=== PATIENT | female | born 1935 | race Hispanic/Latino ===

== ENCOUNTER 2018-01-09 18:54 | Inpatient (IN) | payer MEDICARE ==
[~2018-01-09] VITALS: Ht 144.8 cm; Wt 54.0 kg
[2018-01-09 19:23] LABS: BASOPHILS # (AUTO) 0.1 (0.0-0.1); BASOPHILS % 0.6 % (0.0-1.0); EOSINOPHILS # (AUTO) 0.2 (0.0-0.4); EOSINOPHILS % 1.8 % (0.0-6.0); HEMATOCRIT 25.1 % (34.2-44.1); HEMOGLOBIN 8.3 g/dL (12.0-16.0); LYMPHOCYTES # (AUTO) 1.9 (1.0-3.2); MEAN CORPUSCULAR HEMOGLOBIN 27.9 pg (28-32); MEAN CORPUSCULAR HGB CONC 33.1 g/dL (31-35); MEAN CORPUSCULAR VOLUME 84.5 fL (81-99); MONOCYTES # (AUTO) 1.3 (0.2-0.8); MONOCYTES % 13.6 % (4.4-11.3); NEUTROPHILS % 63.5 % (38.7-80.0); PLATELET COUNT 354 x10e3/uL (140-360); RED BLOOD COUNT 2.97 x10e6/uL (3.6-5.1); RED CELL DISTRIBUTION WIDTH 14.4 % (11.7-14.4)
[2018-01-09 19:37] LABS: ALBUMIN 2.7 g/dL (3.5-5.0); ALBUMIN/GLOBULIN RATIO 0.6 (0.8-2.0); ALKALINE PHOSPHATASE 101 IU/L (40-150); ANION GAP 15.2 mmol/L (8-16); BLOOD UREA NITROGEN 42 mg/dL (7-26); BUN/CREATININE RATIO 18 (6-25); CALCIUM 9.2 mg/dL (8.4-10.2); CARBON DIOXIDE 21 mmol/L (22-29); CHLORIDE 101 mmol/L (98-107); CREATINE KINASE 48 IU/L (29-168); CREATININE, SERUM 2.29 mg/dL (0.57-1.11); EST GLOMERULAR FILTRATION RATE 21 ML/MIN (60-); GLUCOSE 332 mg/dL (74-118); POTASSIUM 5.2 mmol/L (3.5-5.1); SODIUM 132 mmol/L (136-145)
[2018-01-09 19:38] LABS: ALANINE AMINOTRANSFERASE < 6 IU/L (0-55)
[2018-01-09] MEDS: SODIUM CHLORIDE 0.9% 1000ML 1,000 ML IV SCH (19:42)
[2018-01-09 20:03] LABS: BILIRUBIN,URINE NEGATIVE (NEGATIVE); CLARITY,URINE CLOUDY (CLEAR); COLOR,URINE YELLOW (YELLOW); KETONES,URINE NEGATIVE (NEGATIVE); LEUKOCYTE ESTERASE ,URINE 1+ (NEGATIVE); NITRITE,URINE POSITIVE (NEGATIVE); PROTEIN,URINE DIPSTICK 2+ (NEGATIVE); URINE UROBILINOGEN 0.2 mg/dL (0.2 - 1)
[2018-01-09] MEDS ORDERED: GABAPENTIN100 MG PO (20:08)
[2018-01-09] MEDS ORDERED: AMITIZA24 MCG PO (20:08)
[2018-01-09] MEDS ORDERED: SINEMET 25-1001 EACH PO (20:08)
[2018-01-09] MEDS ORDERED: LOSARTAN POTAS100 MG PO (20:08)
[2018-01-09] MEDS ORDERED: NITROFURANTOIN100 MG PO (20:08)
[2018-01-09] MEDS ORDERED: CALCITRIOL0.25 MCG PO (20:08)
[2018-01-09] MEDS ORDERED: PANTOPRAZOLE SO40 MG PO (20:08)
[2018-01-09] MEDS ORDERED: ATORVASTATIN CA20 MG PO (20:08)
[2018-01-09] MEDS ORDERED: GLIPIZIDE ER5 MG PO (20:08)
[2018-01-09] MEDS ORDERED: CARVEDILOL3.125 MG PO (20:08)
[2018-01-09] MEDS ORDERED: NOVOLOG100 UNITS1 SQ (20:08)
[2018-01-09] MEDS ORDERED: AMLODIPINE BESY10 MG PO (20:08)
[2018-01-09] MEDS ORDERED: LEVEMIR100 UNIT/1 SQ (20:08)
[2018-01-09 20:15] LABS: AMORPHOUS SEDIMENT,URINE FEW (FEW); BACTERIA,URINE FEW /HPF; EPITHELIAL CELLS,URINE RARE /LPF; RBC,URINE 0-5 /HPF (0-5)
--- NOTE | 2018-01-09 20:46 | Diagnostic Imaging Report ---
EXAMINATION: CHEST SINGLE (PORTABLE) INDICATION: Weakness COMPARISON: None FINDINGS: TUBES and LINES: None. LUNGS: Lungs are well inflated. Mild chronic appearing changes in the lungs. There is no evidence of pneumonia or pulmonary edema. PLEURA: No pleural effusion or pneumothorax. HEART AND MEDIASTINUM: The cardiomediastinal silhouette is unremarkable. BONES AND SOFT TISSUES: No acute osseous lesion. Soft tissues are unremarkable. UPPER ABDOMEN: No free air under the diaphragm. IMPRESSION: No acute thoracic abnormality. Signed by: Dr. Jonas Modi M.D. on 01/09/2018 8:43 PM
[2018-01-09] MEDS ORDERED: ONDANSETRON HCL INJ 2 MG/ML VIAL IV PRN (21:15)
[2018-01-09] MEDS ORDERED: DEXTROSE 50% SYRINGE 50 ML IV PRN (21:15)
--- OUTSIDE RECORDS SUMMARY | 2018-01-09 21:22 | XMS REPORT ---
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 Allergies, Adverse Reactions, Alerts This patient has no known allergies or adverse reactions. Medications This patient has no known medications. Results Test Description Test Time Test Comments Text Results Atomic Results Result Comments Culture, Urine 2017-05-30 07:00:00 Specimen: UrineCollected: 05/27/2017 12 :48 Status: Final Last Updated: 05/30/2017 07:00 Culture Result ( Final) (Final) 05/30/17 >100,000 CFU/mL Gardnerella vaginalis Isolate (Final ) (Final) 05/28/17 >100,000 CFU/mL Escherichia coli Amikacin <=16 Susceptible Ampicillin <=8 Susceptible Ampicillin/Sulb <=8/4 Susceptible Cefazolin <=8 Susceptible Cefepime <=4 Susceptible Cefotaxime <=2 Susceptible Ceftazidime <=1 Susceptible Ceftriaxone <=1 Susceptible Cefuroxime <=4 Susceptible Ciprofloxacin <=1 Susceptible Gentamicin <=4 Susceptible Imipenem <=1 Susceptible Levofloxacin <=2 Susceptible Meropenem <=1 Susceptible Nitrofurantoin <=32 Susceptible Piperacillin/Tazo <=16 Susceptible Tobramycin <=4 Susceptible Trimethoprim/Sulfa <=2/38 Susceptible POC Glucose, Blood 2017-05-29 17:46:00 POC Glucose (test code=POCGLUC) 433 mg/dL 70-115 POC Glucose, [id number] 14:42:00* Test Item Value Reference Range Comments POC Glucose (test code=POCGLUC) 468 mg/dL 70-115 POC Glucose, [id number] 11:37:00* Test Item Value Reference Range Comments POC Glucose (test code=POCGLUC) 421 mg/dL 70-115 Notify RN or POC Glucose, [id number] 08:13:00* Test Item Value Reference Range Comments POC Glucose (test code=POCGLUC) 428 mg/dL 70-115 Notify RN or CBC with [id number] 02:31:00* Test Item Value Reference Range Comments WBC (test code=WBC) 12.9 K/cumm 4.4-10.5 RBC (test code=RBC) 3.09 M/cumm 3.75-5.20 Hemoglobin (test code=HGB) 8.2 gm/dL 12.2-14.8 Hematocrit (test code=HCT) 25.2 % 36.5-44.4 MCV (test code=MCV) 81.7 fL 80-100 MCH (test code=MCH) 26.6 pg 27.0-32.5 MCHC (test code=MCHC) 32.6 g/dL 32.0-37.5 RDW (test code=RDW) 15.7 % 11.5-14.5 Platelet Count (test code=PLTCT) 386 K/cumm 140-440 MPV (test code=MPV) 7.6 fL Diff Method (test code=DIFFM) Manual Neutrophil (test code=NEUT) 96.0 % 36-70 Bands (test code=BAND) 1.0 % 0-6 Lymphocyte (test code=LYMPH) 2.0 % 12-44 Monocyte (test code=MONO) 1.0 % 0-11 Neutro Abs (test code=ANEUT) 12.5 K/cumm 1.6-7.4 Lymph Abs (test code=ALYMPH) 0.3 K/cumm 0.5-4.6 [place] Abs (test code=AMONO) 0.1 K/cumm 0.0-1.2 RBC Morphology (test code=RBCMRPH) Not Indicated Platelet Est (test code=PLTEST) Adequate Platelets on Smear Basic Metabolic [id number] 02:22:00* Test Item Value Reference Range Comments Sodium (test code=NA) 133 mmol/L 135-145 Potassium (test code=K) 5.0 mmol/L 3.5-5.1 Chloride (test code=CL) 101 mmol/L 98-105 Carbon Dioxide (test code=CO2) 20 mmol/L 22-29 Glucose (test code=GLU) 355 mg/dL 70-115 Blood Urea Nitrogen (test code=BUN) 39 mg/dL 8-23 Creatinine (test code=CREAT) 1.6 mg/dL 0.5-0.9 Calcium (test code=CA) 8.0 mg/dL 8.3-10.5 BUN/Creatinine Ratio (test code=BCRATIO) 24.4 Anion Gap (test code=AGAP) 12 mmol/L 7-16 Estimated GFR (test code=GFR) 33 mL/min/1.73m2 eGFR (estimated Glomerular Filtration Rate) is an estimated value,calculated from the patient's serum creatinine using the MDRD equation.It is NOT the patient's actual GFR. The eGFR provides a more clinicallyuseful measure of kidney disease than serum creatinine alone.This calculation takes sex and race into account, if the informationis provided. If the race is not provided, and the patient isAfrican- Armenian, multiply by 1.212. If sex is not provided, and thepatient is female, multiply by 0.742. Results for patients <18 years ofage have not been validated by the MDRD study and should be interpretedwith caution.eGFR Result Interpretation:eGFR > or=60 is in the Normal RangeeGFR < 60 may mean kidney diseaseeGFR < 15 may mean kidney failureRanges recommended by the National Kidney Foundation,http://nkdep.nih.gov POC Glucose, [id number] 20:09:00* Test Item Value Reference Range Comments POC Glucose (test code=POCGLUC) 333 mg/dL 70-115 Notify RN or MDIf you consider your patient critically ill, the [place] Accu-Chek InformII metershould not be used for Glucose determinations.Draw a venous Glucose and send to the Main Lab for Analysis. POC Glucose, [id number] 17:09:00* Test Item Value Reference Range Comments POC Glucose (test code=POCGLUC) 343 mg/dL 70-115 If you consider your patient critically ill, the [place] Accu-Chek InformII metershould not be used for Glucose determinations.Draw a venous Glucose and send to the Main Lab for Analysis. POC Glucose, [id number] 12:43:00* Test Item Value Reference Range Comments POC Glucose (test code=POCGLUC) 343 mg/dL 70-115 Notify RN or MDIf you consider your patient critically ill, the [place] Accu-Chek InformII metershould not be used for Glucose determinations.Draw a venous Glucose and send to the Main Lab for Analysis. POC Glucose, [id number] 08:12:00* Test Item Value Reference Range Comments POC Glucose (test code=POCGLUC) 235 mg/dL 70-115 If you consider your patient critically ill, the [place] Accu-Chek InformII metershould not be used for Glucose determinations.Draw a venous Glucose and send to the Main Lab for Analysis. Thyroid Stimulating Hormone (TSH)2017-05-28 07:48:00* Test Item Value Reference Range Comments TSH (test code=TSH) 0.52 mIU/mL 0.270-4.200 CBC with [id number] 07:25:00* Test Item Value Reference Range Comments WBC (test code=WBC) 17.5 K/cumm 4.4-10.5 RBC (test code=RBC) 3.65 M/cumm 3.75-5.20 Hemoglobin (test code=HGB) 9.6 gm/dL 12.2-14.8 Hematocrit (test code=HCT) 31.3 % 36.5-44.4 MCV (test code=MCV) 85.7 fL 80-100 MCH (test code=MCH) 26.2 pg 27.0-32.5 MCHC (test code=MCHC) 30.5 g/dL 32.0-37.5 RDW (test code=RDW) 17.4 % 11.5-14.5 Platelet Count (test code=PLTCT) 413 K/cumm 140-440 MPV (test code=MPV) 8.3 fL Diff Method (test code=DIFFM) Manual Neutrophil (test code=NEUT) 89.0 % 36-70 Bands (test code=BAND) 1.0 % 0-6 Lymphocyte (test code=LYMPH) 10.0 % 12-44 Neutro Abs (test code=ANEUT) 15.8 K/cumm 1.6-7.4 Lymph Abs (test code=ALYMPH) 1.8 K/cumm 0.5-4.6 RBC Morphology (test code=RBCMRPH) Slight Anisocytosis Platelet Est (test code=PLTEST) Adequate Platelets on Smear Basic Metabolic [id number] 06:20:00* Test Item Value Reference Range Comments Sodium (test code=NA) 138 mmol/L 135-145 Potassium (test code=K) 5.0 mmol/L 3.5-5.1 Chloride (test code=CL) 105 mmol/L 98-105 Carbon Dioxide (test code=CO2) 19 mmol/L 22-29 Glucose (test code=GLU) 113 mg/dL 70-115 Blood Urea Nitrogen (test code=BUN) 41 mg/dL 8-23 Creatinine (test code=CREAT) 1.6 mg/dL 0.5-0.9 Calcium (test code=CA) 8.1 mg/dL 8.3-10.5 BUN/Creatinine Ratio (test code=BCRATIO) 25.6 Anion Gap (test code=AGAP) 14 mmol/L 7-16 Estimated GFR (test code=GFR) 33 mL/min/1.73m2 eGFR (estimated Glomerular Filtration Rate) is an estimated value,calculated from the patient's serum creatinine using the MDRD equation.It is NOT the patient's actual GFR. The eGFR provides a more clinicallyuseful measure of kidney disease than serum creatinine alone.This calculation takes sex and race into account, if the informationis provided. If the race is not provided, and the patient isAfrican- Armenian, multiply by 1.212. If sex is not provided, and thepatient is female, multiply by 0.742. Results for patients <18 years ofage have not been validated by the MDRD study and should be interpretedwith caution.eGFR Result Interpretation:eGFR > or=60 is in the Normal RangeeGFR < 60 may mean kidney diseaseeGFR < 15 may mean kidney failureRanges recommended by the National Kidney Foundation,http://nkdep.nih.gov Glycosylated [id number] 06:18:00* Test Item Value Reference Range Comments HBA1c (test code=HBA1C) 10.4 % 4.8-5.9 Lactic Acid [id number] 06:18:00* Test Item Value Reference Range Comments Lactic Acid, Bld (test code=LAC) 1.9 mmol/L 0.5-1.9 POC Glucose, [id number] 04:14:00* Test Item Value Reference Range Comments POC Glucose (test code=POCGLUC) 116 mg/dL 70-115 If you consider your patient critically ill, the [place] Accu-Chek InformII metershould not be used for Glucose determinations.Draw a venous Glucose and send to the Main Lab for Analysis. POC Glucose, [id number] 02:41:00* Test Item Value Reference Range Comments POC Glucose (test code=POCGLUC) 217 mg/dL 70-115 If you consider your patient critically ill, the [place] Accu-Chek InformII metershould not be used for Glucose determinations.Draw a venous Glucose and send to the Main Lab for Analysis. POC Glucose, [id number] 02:33:00* Test Item Value Reference Range Comments POC Glucose (test code=POCGLUC) 37 mg/dL 70-115 POC Glucose, [id number] 21:03:00* Test Item Value Reference Range Comments POC Glucose (test code=POCGLUC) 92 mg/dL 70-115 If you consider your patient critically ill, the [place] Accu-Chek InformII metershould not be used for Glucose determinations.Draw a venous Glucose and send to the Main Lab for Analysis. POC Glucose, [id number] 16:40:00* Test Item Value Reference Range Comments POC Glucose (test code=POCGLUC) 251 mg/dL 70-115 If you consider your patient critically ill, the [place] Accu-Chek InformII metershould not be used for Glucose determinations.Draw a venous Glucose and send to the Main Lab for Analysis. POC Glucose, [id number] 14:56:00* Test Item Value Reference Range Comments POC Glucose (test code=POCGLUC) 325 mg/dL 70-115 If you consider your patient critically ill, the [place] Accu-Chek InformII metershould not be used for Glucose determinations.Draw a venous Glucose and send to the Main Lab for Analysis. CBC with [id number] 14:09:00* Test Item Value Reference Range Comments WBC (test code=WBC) 14.3 K/cumm 4.4-10.5 RBC (test code=RBC) 3.31 M/cumm 3.75-5.20 Hemoglobin (test code=HGB) 9.1 gm/dL 12.2-14.8 Hematocrit (test code=HCT) 28.3 % 36.5-44.4 MCV (test code=MCV) 85.3 fL 80-100 MCH (test code=MCH) 27.3 pg 27.0-32.5 MCHC (test code=MCHC) 32.0 g/dL 32.0-37.5 RDW (test code=RDW) 15.3 % 11.5-14.5 Platelet Count (test code=PLTCT) 388 K/cumm 140-440 MPV (test code=MPV) 8.1 fL Diff Method (test code=DIFFM) Manual Neutrophil (test code=NEUT) 95.0 % 36-70 Bands (test code=BAND) 2.0 % 0-6 Lymphocyte (test code=LYMPH) 3.0 % 12-44 Neutro Abs (test code=ANEUT) 13.9 K/cumm 1.6-7.4 Lymph Abs (test code=ALYMPH) 0.4 K/cumm 0.5-4.6 RBC Morphology (test code=RBCMRPH) Moderate Hypochromia Platelet Est (test code=PLTEST) Normal Platelet on Smear Blood [id number] 14:03:00* Test Item Value Reference Range Comments pH, Blood Gas (test code=BGPH) 7.313 pH Units 7.35-7.45 pCO2 (test code=PCO2) 36.4 mm Hg 35-45 pO2 (test code=PO2) 77.3 mm Hg 80-100 Bicarbonate (test code=HCO3) 18.5 mmol/L 22.0-26.0 Base Excess (test code=BE) -7.1 mmol/L O2 Saturation (test code=O2SAT) 95.5 % 80.0-100.0 tHB (test code=RTHB) 8.9 gm/dL 12.2-17.4 Hematocrit, Blood Gas (test code=BGHCT) 27.2 % 34.0-52.0 O2Hb (test code=RO2HB) 93 80-100 Carboxyhemoglobin (test code=CARHGB) 1.5 % 0.0-20.0 Methemoglobin (test code=METHGB) 0.8 % 0.0-20.0 Patient Temperature (test code=PTTEMP) 37.0 Degrees Celcius Comment (test code=COMMENT) ewfjqniiyjebp66vdrhvjc45% Puncture Site (test code=PUNSITE) Radial. L iPAP (test code=IPAP) 0 cmH2O Respiratory Rate (test code=RESP RATE) 0 Comprehensive Metabolic [id number] 13:34:00* Test Item Value Reference Range Comments Sodium (test code=NA) 130 mmol/L 135-145 Potassium (test code=K) 5.4 mmol/L 3.5-5.1 Chloride (test code=CL) 95 mmol/L 98-105 Carbon Dioxide (test code=CO2) 20 mmol/L 22-29 Glucose (test code=GLU) 508 mg/dL 70-115 VERIFIED BY REPEAT TESTING READ BACK LAB VALUES COBYWilliamsJose Carlos 1334 05/27/17 NC Blood Urea Nitrogen (test code=BUN) 52 mg/dL 8-23 Creatinine (test code=CREAT) 1.9 mg/dL 0.5-0.9 Calcium (test code=CA) 8.0 mg/dL 8.3-10.5 Prot Total (test code=TP) 6.0 g/dL 6.4-8.3 Albumin (test code=ALB) 3.1 g/dL 3.5-5.2 A/G Ratio (test code=AGRATIO) 1.1 Ratio Globulin (test code=GLOB) 2.9 2.9-3.1 Bili Total (test code=TBIL) 0.2 mg/dL 0.1-0.9 Alk Phos (test code=APHOS) 131 U/L 35-104 AST (test code=AST) 9 U/L 1-32 ALT (test code=ALT) 7 U/L 1-33 BUN/Creatinine Ratio (test code=BCRATIO) 27.4 Anion Gap (test code=AGAP) 15 mmol/L 7-16 Estimated GFR (test code=GFR) 27 mL/min/1.73m2 eGFR (estimated Glomerular Filtration Rate) is an estimated value,calculated from the patient's serum creatinine using the MDRD equation.It is NOT the patient's actual GFR. The eGFR provides a more clinicallyuseful measure of kidney disease than serum creatinine alone.This calculation takes sex and race into account, if the informationis provided. If the race is not provided, and the patient isAfrican- Armenian, multiply by 1.212. If sex is not provided, and thepatient is female, multiply by 0.742. Results for patients <18 years ofage have not been validated by the MDRD study and should be interpretedwith caution.eGFR Result Interpretation:eGFR > or=60 is in the Normal RangeeGFR < 60 may mean kidney diseaseeGFR < 15 may mean kidney failureRanges recommended by the National Kidney Foundation,http://nkdep.nih.gov [id number] 13:26:00* Test Item Value Reference Range Comments Acetone [Serum] (test code=ACETONE) Negative Negative Urinalysis [id number] 13:13:00* Test Item Value Reference Range Comments Color (test code=COLOR) Yellow Yellow,Straw,Pl yellow Clarity (test code=CLAR) Cloudy Clear Specific [place] (test code=SPGR) 1.013 1.001-1.035 pH (test code=PH) 5.0 5.0-9.0 Ketone (test code=KET) Negative mg/dL Negative Glucose (test code=GLUCUR) 300 mg/dL Negative Protein (test code=PROT) 75 mg/dL Negative Bilirubin (test code=BILI) Negative mg/dL Negative Occult Blood (test code=UDOB) Small Negative Urobilinogen (test code=UROB) 0.2 mg/dL 0.2-1.0 Nitrite (test code=NIT) Positive Negative Leuk Esterase (test code=LEUK) Large Negative Micros Exam (test code=MEXAM) Indicated Epithelial Cells (test code=EPI) 3-5 /LPF 0-30 WBC, Urine (test code=UWBC) 6-10 /HPF 0-5 RBC, Urine (test code=URBC) 0-3 /HPF 0-5 Bacteria (test code=BACT) Many /HPF CHEST SINGLE (PORTABLE) [facility] [address] [address] Patient Name: YESENIA WEBSTER MR #: [id number] : 1935 Age/Sex: 82/F Req #: [id number] Adm Physician: Ordered by: MARQUIS GARDNER MD Report #: [id number] Location: ER Room/Bed: Procedure: [id number] DX/CHEST SINGLE (PORTABLE) Exam Date: 01/09/18 Exam Time: 1919 REPORT STATUS: Signed EXAMINATION: CHEST SINGLE ( PORTABLE) INDICATION: Weakness COMPARISON: None FINDINGS: TUBES and LINES: None. LUNGS: Lungs are well inflated. Mild chronic appearing changes in the lungs. There is no evidence of pneumonia or pulmonary edema. PLEURA: No pleural effusion or pneumothorax. HEART AND MEDIASTINUM: The cardiomediastinal silhouette is unremarkable. BONES AND SOFT TISSUES: No acute osseous lesion. Soft tissues are unremarkable. UPPER ABDOMEN: No free air under the diaphragm. IMPRESSION: No acute thoracic abnormality. Signed by: Dr. Jonas Modi M.D. on 01/09/2018 8:43 PM Dictated By: JONAS MODI MD, MD 42 Transcribed By: SUPA on 01/09/182042 COPY TO: MARQUIS GARDNER MD
--- OUTSIDE RECORDS SUMMARY | 2018-01-09 21:22 | XMS REPORT | Clinical Summary ---
Author Author [facility] Address Unknown Phone Unavailable Care Team Providers Care Direct Service Provider Name Role Phone PCP Unavailable Allergies Not on File Current Medications Not on file Active Problems Not on file Social History Tobacco Use Types Packs/Day Years Used Date Never Assessed Sex Assigned at Date Recorded Not on file Last Filed Vital Signs Not on file Plan of Treatment Not on file Results Not on fileafter 01/08/2017
[2018-01-09] MEDS ORDERED: ONDANSETRON HCL 4 MG ORAL DISINTEGRATING TAB PO PRN (21:30)
[2018-01-09] MEDS: CEFTRIAXONE SOD 1 GM VIAL IV SCH (21:55)
[2018-01-09] MEDS: ACETAMINOPHEN 325 MG TAB PO PRN (23:08)
[2018-01-09 23:39] VITALS: BP 166/75
[2018-01-10] MEDS: HYDRALAZINE HCL 20 MG/ML VIAL IV PRN (00:54)
[2018-01-10 01:05] VITALS: BP 166/93
[2018-01-10] MEDS: SODIUM CHLORIDE 0.9% 1000ML 1,000 ML IV SCH ×3 (03:24→15:30)
[2018-01-10 06:13] LABS: BASOPHILS # (AUTO) 0.1 (0.0-0.1); BASOPHILS % 0.6 % (0.0-1.0); EOSINOPHILS # (AUTO) 0.1 (0.0-0.4); EOSINOPHILS % 1.5 % (0.0-6.0); HEMOGLOBIN 7.3 g/dL (12.0-16.0); LYMPHOCYTES # (AUTO) 1.5 (1.0-3.2); LYMPHOCYTES % 18.7 % (18.0-39.1); MEAN CORPUSCULAR HEMOGLOBIN 27.7 pg (28-32); MEAN CORPUSCULAR HGB CONC 32.7 g/dL (31-35); MEAN CORPUSCULAR VOLUME 84.5 fL (81-99); MONOCYTES % 12.5 % (4.4-11.3); NEUTROPHILS # (AUTO) 5.4 (2.1-6.9); NEUTROPHILS % 66.1 % (38.7-80.0); PLATELET COUNT 297 x10e3/uL (140-360); RED BLOOD COUNT 2.64 x10e6/uL (3.6-5.1); RED CELL DISTRIBUTION WIDTH 14.4 % (11.7-14.4)
[2018-01-10 06:20] LABS: HEMATOCRIT 22.3 % (34.2-44.1)
[2018-01-10 06:25] VITALS: BP 97/50
[2018-01-10 06:45] LABS: ALBUMIN 2.2 g/dL (3.5-5.0); ALBUMIN/GLOBULIN RATIO 0.6 (0.8-2.0); ALKALINE PHOSPHATASE 79 IU/L (40-150); BLOOD UREA NITROGEN 39 mg/dL (7-26); BUN/CREATININE RATIO 17 (6-25); CALCIUM 8.6 mg/dL (8.4-10.2); CARBON DIOXIDE 20 mmol/L (22-29); CHLORIDE 106 mmol/L (98-107); CREATININE, SERUM 2.24 mg/dL (0.57-1.11); EST GLOMERULAR FILTRATION RATE 21 ML/MIN (60-); GLUCOSE 265 mg/dL (74-118); SODIUM 133 mmol/L (136-145)
[2018-01-10 06:49] LABS: ALANINE AMINOTRANSFERASE < 6 IU/L (0-55)
[2018-01-10] MEDS: PANTOPRAZOLE SOD 40 MG TABEC PO SCH (07:52)
[2018-01-10 08:00] VITALS: BP 112/66
[2018-01-10] MEDS: LUBIPROSTONE 24 MCG CAP PO SCH (08:40)
[2018-01-10] MEDS: CARVEDILOL 3.125 MG TAB PO SCH (08:40)
[2018-01-10] MEDS: INSULIN REGULAR, HUMAN 100 UNIT/1 ML 3ML VIAL SQ SCH ×4 (08:40→21:00)
[2018-01-10] MEDS: LOSARTAN POTASSIUM 100 MG TAB PO SCH (08:40)
[2018-01-10] MEDS: AMLODIPINE BESYLATE 10 MG TAB PO SCH (08:40)
[2018-01-10] MEDS ORDERED: FUROSEMIDE INJ 10 MG/ML 2 ML VIAL IV ONE ×2 (10:30→20:15)
[2018-01-10] MEDS ORDERED: SODIUM CHLORIDE 0.9% 250ML 250 ML IV ONE (11:00)
[2018-01-10 12:00] VITALS: BP 111/67
[2018-01-10] MEDS ORDERED: DIPHENHYDRAMINE HCL INJ 50 MG/ML VIAL ONE (13:47)
[2018-01-10] MEDS: ACETAMINOPHEN 325 MG TAB PO PRN (13:50)
[2018-01-10 14:55] LABS: FREE THYROXINE INDEX 1.9882 (1.4-3.8); THYROID STIMULATING HORMONE 0.508 uIU/mL (0.350-4.940)
[2018-01-10 16:00] VITALS: BP 124/53
[2018-01-10] MEDS ORDERED: FUROSEMIDE INJ 10 MG/ML 4 ML VIAL ONE (16:35)
[2018-01-10] MEDS ORDERED: SODIUM CHLORIDE 0.9% 250ML 250 ML ONE (17:29)
--- NOTE | 2018-01-10 18:37 | Consultation ---
DATE OF CONSULTATION: GASTROENTEROLOGY CONSULTATION REQUESTING PHYSICIAN: Dr. Matti Layton. REASON FOR CONSULT: Anemia. HISTORY OF PRESENT ILLNESS: Patient is an 82-year-old female with past medical history of hypertension, diabetes type 2, CKD and CAD, who presented with weakness. She was seen in December for anemia, and an upper EGD was done by Dr. Flynn. Upper EGD showed gastritis and hiatal hernia. Patient was given a few units of blood and was sent home with a hemoglobin of 7.8. Currently patient has a hemoglobin of 7.3 and has been given a unit of blood over here. She was also treated for a UTI and complains of mild abdominal pain. Before arrival, patient had some black stools per her daughter, but she does not have any more black stools while she has been here. She is still feeling weak and has been on IV fluids, and she denies any nausea, vomiting, hematemesis or dysphagia. REVIEW OF SYSTEMS: 10 system review was performed. Denies any double vision, fainting episodes, head injury, traumatic brain injury, palpitations, numbness, hematochezia, fever, sore throat, difficulty breathing or chest pain. PAST MEDICAL HISTORY: Hypertension, diabetes mellitus, Parkinson's. SURGERIES: Cholecystectomy. MEDICATIONS: See nurse's note. ALLERGIES: SEE NURSE'S NOTE. SOCIAL HISTORY: Patient is not a smoker, denies any drug use or alcohol use. PHYSICAL EXAMINATION VITAL SIGNS: Temperature 97.8, pulse 93, respiratory rate 19, blood pressure 166/93, pulse ox is 98. GENERAL: Patient is alert and oriented. No acute distress. HEAD: No tenderness or ecchymosis, anicteric. EYES: No nystagmus. EOM: Intact. ENT: Mucous membranes moist. No pharyngeal erythema. NECK: Nontender, supple. CARDIAC: Tachycardic. No murmurs. Normal rhythm. RESPIRATORY: No respiratory distress. No decreased air movement, rales or wheezes. ABDOMEN: Slight tenderness in lower quadrant. No organomegaly or mass present. Bowel sounds active. SKIN: No cyanosis, no edema, no skin rash. EXTREMITIES: No calf tenderness. No lower extremity edema. NEUROLOGIC: Alert and oriented x3. Speech normal. REVIEW OF LABS: Hemoglobin is 7.3, MCV 84.5, white count 8.23. Iron 14, TIBC 189. Sodium 133. AST 9, ALT less than 6. Glucose 110. ASSESSMENT 1. Anemia, most likely due to iron deficiency--rule out lower gastrointestinal bleed. 2. History of melena. 3. Weakness. 4. Abdominal discomfort. PLAN 1. We will proceed with a colonoscopy on Saturday. Consent will be put in as well as the prep that will be done on Saturday. 2. We will start the patient on iron for iron deficiency anemia. 3. Monitor H\T\H, transfuse if less than 7. 4. IV fluids and nutritional supplements to promote feeding. 5. Antiemetics and Protonix. 6. Continue Amitiza. Thank you for consulting us. We will follow. Dictated by: Kandice Anguiano PA-C Patient inteviewed, seen and examined. Chart from [place] reviewed including prior endoscopy records. Patient discussed with family bedside as well. Agree with documentation as above. Job#: [id number] EV ARTURO
[2018-01-10 20:00] VITALS: BP 128/53
[2018-01-10] MEDS: CEFTRIAXONE SOD 1 GM VIAL IV SCH (21:18)
[2018-01-10] MEDS: ATORVASTATIN 20 MG TAB PO SCH (21:18)
[2018-01-10] MEDS: GABAPENTIN 100 MG CAP PO SCH (21:18)
[2018-01-11] VITALS: BP 134/72
[2018-01-11 04:00] VITALS: BP 136/65
[2018-01-11] MEDS: SODIUM CHLORIDE 0.9% 1000ML 1,000 ML IV SCH ×2 (06:28→11:30)
[2018-01-11 08:00] VITALS: BP_SYST 119; BP_SYST 137; BP_DIAS 63
[2018-01-11] MEDS: INSULIN REGULAR, HUMAN 100 UNIT/1 ML 3ML VIAL SQ SCH ×4 (08:30→20:38)
[2018-01-11] MEDS: LOSARTAN POTASSIUM 100 MG TAB PO SCH (08:30)
[2018-01-11] MEDS: LUBIPROSTONE 24 MCG CAP PO SCH (08:30)
[2018-01-11] MEDS: AMLODIPINE BESYLATE 10 MG TAB PO SCH (08:30)
[2018-01-11] MEDS: PANTOPRAZOLE SOD 40 MG TABEC PO SCH (08:30)
[2018-01-11] MEDS: CARVEDILOL 3.125 MG TAB PO SCH (08:30)
[2018-01-11 08:36] LABS: BASOPHILS # (AUTO) 0.1 (0.0-0.1); BASOPHILS % 0.5 % (0.0-1.0); EOSINOPHILS # (AUTO) 0.2 (0.0-0.4); EOSINOPHILS % 1.7 % (0.0-6.0); HEMATOCRIT 30.2 % (34.2-44.1); HEMOGLOBIN 10.1 g/dL (12.0-16.0); LYMPHOCYTES # (AUTO) 1.7 (1.0-3.2); LYMPHOCYTES % 17.7 % (18.0-39.1); MEAN CORPUSCULAR HGB CONC 33.4 g/dL (31-35); MEAN CORPUSCULAR VOLUME 83.7 fL (81-99); MONOCYTES % 10.9 % (4.4-11.3); NEUTROPHILS # (AUTO) 6.4 (2.1-6.9); NEUTROPHILS % 67.8 % (38.7-80.0); PLATELET COUNT 270 x10e3/uL (140-360); RED BLOOD COUNT 3.61 x10e6/uL (3.6-5.1); RED CELL DISTRIBUTION WIDTH 15.1 % (11.7-14.4)
[2018-01-11 09:14] LABS: ALBUMIN 2.1 g/dL (3.5-5.0); ALBUMIN/GLOBULIN RATIO 0.6 (0.8-2.0); ALKALINE PHOSPHATASE 84 IU/L (40-150); ANION GAP 12.6 mmol/L (8-16); BLOOD UREA NITROGEN 37 mg/dL (7-26); BUN/CREATININE RATIO 16 (6-25); CALCIUM 8.8 mg/dL (8.4-10.2); CARBON DIOXIDE 20 mmol/L (22-29); CHLORIDE 108 mmol/L (98-107); CREATININE, SERUM 2.26 mg/dL (0.57-1.11); EST GLOMERULAR FILTRATION RATE 21 ML/MIN (60-); GLUCOSE 268 mg/dL (74-118); POTASSIUM 4.6 mmol/L (3.5-5.1); SODIUM 136 mmol/L (136-145)
[2018-01-11 09:16] LABS: ALANINE AMINOTRANSFERASE < 6 IU/L (0-55)
[2018-01-11 12:00] VITALS: BP 119/63
[2018-01-11 16:00] VITALS: BP 120/65
[2018-01-11 17:39] LABS: CREATININE,URINE RANDOM 20.89 mg/dL (47-110)
--- NOTE | 2018-01-11 17:43 | Consultation ---
DATE OF CONSULTATION: January 11, 2018 RENAL CONSULTATION Thank you for the consultation, Dr. Quarles. Ms. Lopez is a pleasant, 82-year-old female with a past medical history significant for diabetes mellitus type 2, chronic kidney disease, stage 4, history of coronary artery disease, hypertension who is a clinic patient of ours, and apparently was admitted for anemia by her primary doctor. She was apparently seen in December for anemia, and had an upper EGD done by Dr. Flynn of GI service. She was given a few units of blood and was sent home with hemoglobin 7.8. Hemoglobin on admission was 7.3. Creatinine was slightly elevated also at 2.24. It is 2.26 mg per dL today. Renal consultation has been asked for to follow her kidney function and continue to monitor while she is here in the hospital. Currently, no fever, no chills, no nausea and no vomiting, no diarrhea, no abdominal pain. Does have some generalized weakness and no other symptoms. PAST MEDICAL HISTORY: As outlined above. MEDICATIONS: Have all been reviewed per chart. FAMILY HISTORY: Noncontributory. SOCIAL HISTORY: No tobacco, no alcohol use. REVIEW OF SYSTEMS: See HPI. Otherwise, all systems negative. ALLERGIES: PENICILLIN. PHYSICAL EXAMINATION VITAL SIGNS: Blood pressure 147/63, pulse 78, afebrile. HEENT AND NECK: No cervical lymphadenopathy. Neck is supple, without masses. No obvious JVD. Moist-appearing oral mucosa. SKIN: Appears to be moist, with good skin turgor. CHEST: Good expansion. No chest wall tenderness. LUNGS: Clear to auscultation bilaterally. CARDIOVASCULAR: S1 and S2. No obvious gallop, rub or murmur. ABDOMEN: Soft. Positive bowel sounds. Nontender. EXTREMITIES: No evidence of lower extremity edema. No clubbing, no cyanosis. NEUROLOGIC: Awake, alert, oriented x3. Grossly otherwise nonfocal. On exam, does have some generalized weakness. LABORATORY DATA: Sodium 136, potassium 4.6, chloride 108, bicarb 20, BUN 37, creatinine 2.26, calcium 8.8. Hematology: Hemoglobin and hematocrit 10.1 and 30.2. The patient did receive packed red blood cells. Urine WBCs 6-10. IMPRESSION AND PLAN: 1. Chronic kidney disease, stage 4. The patient is more or less at her baseline. Will discontinue IV fluids to avoid fluid overload. Recheck labs again in the morning including basic metabolic panel, , CBC and make further recommendations. Will also get urine electrolytes. Will do a followup chest x-ray to ensure the patient is not getting fluid overloaded. Will continue to follow along with you and make further recommendations. 2. Hypertension. Blood pressure is currently stable. Will continue to monitor closely and make further recommendations. Continue current home blood pressure medication. 3. Anemia of chronic disease. Plan would be as per GI service. Hemoglobin is improved. The patient likely received some packed red blood cells. Thank you once again for this consultation. Will follow the patient closely along with you and make further recommendations. Job#: [id number] cc:RAMIRO QUARLES MD
[2018-01-11 20:23] VITALS: BP 148/67
[2018-01-11] MEDS: ATORVASTATIN 20 MG TAB PO SCH (20:37)
[2018-01-11] MEDS: GABAPENTIN 100 MG CAP PO SCH (20:38)
[2018-01-11] MEDS: CEFTRIAXONE SOD 1 GM VIAL IV SCH (21:15)
[2018-01-12] VITALS: BP 134/61
[2018-01-12 04:00] VITALS: BP 135/63
[2018-01-12 06:44] LABS: BASOPHILS # (AUTO) 0.1 (0.0-0.1); BASOPHILS % 0.6 % (0.0-1.0); EOSINOPHILS # (AUTO) 0.3 (0.0-0.4); EOSINOPHILS % 2.9 % (0.0-6.0); HEMOGLOBIN 9.9 g/dL (12.0-16.0); LYMPHOCYTES # (AUTO) 1.7 (1.0-3.2); LYMPHOCYTES % 15.8 % (18.0-39.1); MEAN CORPUSCULAR HEMOGLOBIN 28.4 pg (28-32); MONOCYTES # (AUTO) 1.1 (0.2-0.8); MONOCYTES % 10.4 % (4.4-11.3); NEUTROPHILS # (AUTO) 7.3 (2.1-6.9); NEUTROPHILS % 69.2 % (38.7-80.0); PLATELET COUNT 279 x10e3/uL (140-360); RED BLOOD COUNT 3.49 x10e6/uL (3.6-5.1); RED CELL DISTRIBUTION WIDTH 14.9 % (11.7-14.4)
[2018-01-12 07:17] LABS: ANION GAP 13.7 mmol/L (8-16); CALCIUM 8.6 mg/dL (8.4-10.2); CREATININE, SERUM 2.08 mg/dL (0.57-1.11); MAGNESIUM 1.4 MG/DL (1.3-2.1); PHOSPHORUS 3.8 MG/DL (2.3-4.7); POTASSIUM 4.7 mmol/L (3.5-5.1)
[2018-01-12 08:00] VITALS: BP 161/67
[2018-01-12] MEDS: PANTOPRAZOLE SOD 40 MG TABEC PO SCH (08:19)
[2018-01-12] MEDS: LUBIPROSTONE 24 MCG CAP PO SCH (08:19)
[2018-01-12] MEDS: INSULIN REGULAR, HUMAN 100 UNIT/1 ML 3ML VIAL SQ SCH ×4 (08:30→21:00)
[2018-01-12] MEDS: AMLODIPINE BESYLATE 10 MG TAB PO SCH (08:38)
[2018-01-12] MEDS: CARVEDILOL 3.125 MG TAB PO SCH (08:38)
[2018-01-12] MEDS: LOSARTAN POTASSIUM 100 MG TAB PO SCH (08:38)
[2018-01-12] MEDS ORDERED: PEG (High)/E-LYTE SOLN 4,000 ML BTL PO ONE (09:00)
[2018-01-12] MEDS: ACETAMINOPHEN 325 MG TAB PO PRN (11:25)
[2018-01-12 12:00] VITALS: BP 113/53
[2018-01-12] MEDS ORDERED: MINERAL OIL 132 ML BTL PR ONE (13:00)
--- NOTE | 2018-01-12 14:43 | Diagnostic Imaging Report ---
EXAM: Abdomen, 2 Views INDICATION: Pain. COMPARISON: None available. FINDINGS: LINES: None. Bowel: No air fluid levels.. No pneumoperitoneum.. Moderate amount of retained feces and air are noted in the colon and rectum. No calcifications project over the renal shadows, expected course of the ureters bilaterally, and bladder. Soft tissues: Right upper quadrant surgical clips. Bones: No acute osseous abnormality. Degenerative changes of the lumbar spine and pelvis. Impression: No acute radiographic abnormality. Signed by: Dr. Israel Banerjee M.D. on 01/12/2018 2:40 PM
[2018-01-12 16:00] VITALS: BP 176/82
[2018-01-12] MEDS ORDERED: DOCUSATE SODIUM 100 MG CAP PO ONE (17:30)
[2018-01-12] MEDS ORDERED: BISACODYL 10 MG SUPP PR ONE (17:30)
[2018-01-12 20:17] VITALS: BP 153/79
[2018-01-12] MEDS: ATORVASTATIN 20 MG TAB PO SCH (21:00)
[2018-01-12] MEDS: GABAPENTIN 100 MG CAP PO SCH (21:00)
[2018-01-12] MEDS: CEFTRIAXONE SOD 1 GM VIAL IV SCH (21:05)
[2018-01-13] VITALS: BP 150/72
[2018-01-13 04:00] VITALS: BP 149/62
[2018-01-13 06:27] LABS: BASOPHILS # (AUTO) 0.1 (0.0-0.1); BASOPHILS % 0.6 % (0.0-1.0); EOSINOPHILS # (AUTO) 0.3 (0.0-0.4); EOSINOPHILS % 2.6 % (0.0-6.0); HEMATOCRIT 31.7 % (34.2-44.1); HEMOGLOBIN 10.4 g/dL (12.0-16.0); LYMPHOCYTES # (AUTO) 1.7 (1.0-3.2); MEAN CORPUSCULAR HEMOGLOBIN 27.7 pg (28-32); MEAN CORPUSCULAR HGB CONC 32.8 g/dL (31-35); MEAN CORPUSCULAR VOLUME 84.5 fL (81-99); MONOCYTES % 9.7 % (4.4-11.3); NEUTROPHILS # (AUTO) 7.2 (2.1-6.9); NEUTROPHILS % 70.3 % (38.7-80.0); PLATELET COUNT 274 x10e3/uL (140-360); RED BLOOD COUNT 3.75 x10e6/uL (3.6-5.1); RED CELL DISTRIBUTION WIDTH 14.5 % (11.7-14.4)
[2018-01-13 06:50] LABS: ALBUMIN 2.2 g/dL (3.5-5.0); ALBUMIN/GLOBULIN RATIO 0.6 (0.8-2.0); ANION GAP 16.3 mmol/L (8-16); CALCIUM 8.9 mg/dL (8.4-10.2); CREATININE, SERUM 1.74 mg/dL (0.57-1.11); POTASSIUM 4.3 mmol/L (3.5-5.1)
[2018-01-13] MEDS: INSULIN REGULAR, HUMAN 100 UNIT/1 ML 3ML VIAL SQ SCH ×4 (07:30→21:23)
[2018-01-13 08:00] VITALS: BP 166/79
[2018-01-13] MEDS: PANTOPRAZOLE SOD 40 MG TABEC PO SCH (09:00)
[2018-01-13] MEDS: AMLODIPINE BESYLATE 10 MG TAB PO SCH (09:00)
[2018-01-13] MEDS ORDERED: PEG (High)/E-LYTE SOLN 4,000 ML BTL PO ONE (09:00)
[2018-01-13] MEDS ORDERED: BISACODYL 10 MG SUPP PR ONE (09:00)
[2018-01-13] MEDS: CARVEDILOL 3.125 MG TAB PO SCH (09:00)
[2018-01-13] MEDS: LOSARTAN POTASSIUM 100 MG TAB PO SCH (09:00)
[2018-01-13 09:06] LABS: % IRON SATURATION 20 % (15-50); IRON 38 ug/dL (50-170); TOTAL IRON BINDING CAPACITY 192 ug/dL (261-478); TRANSFERRIN 137 mg/dL (180-382)
--- NOTE | 2018-01-13 09:40 | Progress Note ---
DATE: January 13, 2018 RENAL PROGRESS NOTE SUBJECTIVE: Followed for acute kidney injury on chronic kidney disease, stage 3. Kidney function continues to improve. Creatinine is down to 1.7. No nausea, no vomiting, no shortness of breath at this time. OBJECTIVE VITAL SIGNS: Have been noted, 149/62 blood pressure, 79 pulse, afebrile. LUNGS: Clear to auscultation bilaterally. CARDIOVASCULAR: S1 and S2. No rubs. ABDOMEN: Soft. Nontender. EXTREMITIES: No edema. LABS: Potassium is 4.3, BUN 27, creatinine 1.7. IMPRESSION AND PLAN 1. Acute kidney injury, resolved. The patient is off IV fluids. 2. Hypertension. Stable. 3. Chronic kidney disease, stage 3. The patient is at her baseline. Job#: [id number]
[2018-01-13 12:48] VITALS: BP 132/50
[2018-01-13 15:22] LABS: HEMATOCRIT 29.7 % (34.2-44.1); HEMOGLOBIN 9.8 g/dL (12.0-16.0)
[2018-01-13 20:00] VITALS: BP 143/63
[2018-01-13] MEDS: ATORVASTATIN 20 MG TAB PO SCH (21:20)
[2018-01-13] MEDS: GABAPENTIN 100 MG CAP PO SCH (21:22)
[2018-01-13 22:04] LABS: HEMATOCRIT 32.9 % (34.2-44.1)
[2018-01-13] MEDS: CEFTRIAXONE SOD 1 GM VIAL IV SCH (22:05)
[2018-01-14] VITALS: BP 170/74
[2018-01-14] MEDS: HYDRALAZINE HCL 20 MG/ML VIAL IV PRN (00:51)
[2018-01-14 04:00] VITALS: BP 140/59
[2018-01-14 06:13] LABS: HEMATOCRIT 30.8 % (34.2-44.1); HEMOGLOBIN 10.2 g/dL (12.0-16.0)
[2018-01-14 06:44] LABS: ANION GAP 15.8 mmol/L (8-16); CALCIUM 8.6 mg/dL (8.4-10.2); CREATININE, SERUM 1.53 mg/dL (0.57-1.11); MAGNESIUM 1.2 MG/DL (1.3-2.1); POTASSIUM 3.8 mmol/L (3.5-5.1)
[2018-01-14] MEDS: INSULIN REGULAR, HUMAN 100 UNIT/1 ML 3ML VIAL SQ SCH ×3 (07:30→16:30)
[2018-01-14 07:36] VITALS: BP 140/59
--- NOTE | 2018-01-14 09:30 | Progress Note ---
DATE: January 14, 2018 RENAL PROGRESS NOTE SUBJECTIVE: Followed for acute kidney injury on chronic kidney disease, stage 3. Stable kidney function at CKD, stage 3 baseline. Creatinine is 1.5 today. No nausea. No vomiting. No shortness of breath. OBJECTIVE VITAL SIGNS: Noted and shows blood pressure 140/59, afebrile, heart rate 81. LUNGS: Clear to auscultation bilaterally. CARDIOVASCULAR: S1 and S2. No rub. ABDOMEN: Soft and nontender. EXTREMITIES: No edema. LABS: Potassium 3.8, creatinine 1.5. Magnesium is low at 1.2. Phos of 3. IMPRESSION AND PLAN 1. Chronic kidney disease, stage 3: Stable at baseline. 2. Hypertension, stable. 3. Hypomagnesemia: Will replace with intravenous mag sulfate 2 g. Job#: [id number] DAVID
[2018-01-14] MEDS ORDERED: MAGNESIUM SULFATE 2GM/50ML 50 ML IV ONE (09:45)
[2018-01-14 10:06] VITALS: BP 111/65
[2018-01-14] MEDS: AMLODIPINE BESYLATE 10 MG TAB PO SCH (10:30)
[2018-01-14] MEDS: PANTOPRAZOLE SOD 40 MG TABEC PO SCH (10:30)
[2018-01-14] MEDS: CARVEDILOL 3.125 MG TAB PO SCH (10:30)
[2018-01-14] MEDS: LOSARTAN POTASSIUM 100 MG TAB PO SCH (10:30)
[2018-01-14 12:08] VITALS: BP 158/68
[2018-01-14 14:41] LABS: HEMATOCRIT 31.1 % (34.2-44.1); HEMOGLOBIN 10.2 g/dL (12.0-16.0)
[2018-01-14 16:00] VITALS: BP 146/64
[2018-01-14] MEDS ORDERED: FENTANYL CITRATE/PF 100MCG/2 ML INJ ONE (18:44)
== END 2018-01-14 18:11 | disposition home or self-care (01) | DRG 812 ==
LOC: ER 18:54 → ERHOLD 21:14 → MED/SURG2 21:42
PROC: 30233N1 Transfusion of Nonautologous Red Blood Cells into Peripheral Vein, Percutaneous Approach (ICD-10-PCS; principal; 2018-01-10)
PROC: 0DJD8ZZ Inspection of Lower Intestinal Tract, Via Natural or Artificial Opening Endoscopic (ICD-10-PCS; 2018-01-14)
DX: D50.0 Iron deficiency anemia secondary to blood loss (chronic) (principal); N39.0 Urinary tract infection, site not specified; N17.9 Acute kidney failure, unspecified; K64.8 Other hemorrhoids; K64.4 Residual hemorrhoidal skin tags; E11.22 Type 2 diabetes mellitus with diabetic chronic kidney disease; I12.9 Hypertensive chronic kidney disease with stage 1 through stage 4 chronic kidney disease, or unspecified chronic kidney disease; N18.3 Chronic kidney disease, stage 3 (moderate); Z79.4 Long term (current) use of insulin; E83.42 Hypomagnesemia; I25.10 Atherosclerotic heart disease of native coronary artery without angina pectoris; G20 Parkinson's disease; K59.00 Constipation, unspecified
CPT/HCPCS: 36415; 45378; 51700; 71045; 80048; 80053; 81001; 82550; 82553; 82570; 82607; 82948; 83540; 83735; 84100; 84300; 84436; 84443; 84466; 84479; 84484; 85014; 85018; 85025; 85045; 86850; 86900; 86920; 87040; 87086; 87186; 93005; 99284; J0360; J0696; J1200; J1940; J7030; J7050; J7799; P9016